=== PATIENT | female | born 1960 | race Caucasian/White ===

== ENCOUNTER 2024-09-14 10:56 | Emergency (ER) | payer MEDICARE, MEDICAID ==
[~2024-09-14] VITALS: Ht 154.9 cm; Wt 72.0 kg
[2024-09-14 10:58] VITALS: BP 115/76; PULSE 64; RESP 16; TEMP 97; O2SAT 97
--- NOTE | 2024-09-14 11:56 | Physician Documentation ---
History of Present Illness ~ Chief Complaint: Abscess Stated Complaint: GROWTH ON NECK Time Seen by MD: 11:02 HPI Patient is seen today with complaints of a mildly tender mass in the left side of her neck that is been slowly growing and developing over the last 2-3 weeks. Patient denies any drainage from the site or redness or warmth. Patient denies any fevers or chills. Patient states she does take thyroid hormone but denies any previous thyroid surgeries. Patient denies any personal history of cancer but states her sister did pass from ovarian cancer. Patient denies any shortness of breath or trouble swallowing or chest pain or abdominal pain or nausea, vomiting, diarrhea. Patient has no other concern or complaint at this time. Medication Reconciliation Allergies: Coded Allergies: No Known Allergies (Unverified , 09/14/24) Review of Systems Constitutional: Denies: chills, fever, weakness Eyes: Denies: pain, blurred vision ENT: Denies: ear pain, nose pain, throat pain, mouth pain Respiratory: Denies: cough, shortness of breath Cardiovascular: Denies: chest pain, palpitations Gastrointestinal: Denies: abdominal pain, nausea, vomiting Genitourinary: Denies: burning, dysuria Female Genitalia: Denies: vaginal discharge, pelvic pain Neurological: Denies: headache, dizziness Musculoskeletal: Denies: pain, swelling Integumentary: Denies: rash, lesions Allergic/Immunologic: Denies: hives, itching Hematologic/Lymphatic: Denies: no symptoms reported Psychiatric: Denies: depression, anxiety Physical Exam Vital Signs: Temperature: 97.0, Heart Rate: 64, Respiratory Rate: 16, BP: 115/76, Pulse Oximetry: 97, Weight: 72.000 Physical Exam General: Awake and Alert, no acute distress. HEENT: Conjunctiva pink, Sclera clear, Mucus Membranes moist. Neck: Patient on exam does have large non fluctuant firm mass that is nonmobile in the left side of her neck around her sternocleidomastoid muscle. In the area of the anterior cervical chain of lymph nodes. Patient has mild tenderness to palpation in this area. I do not appreciate any erythema or warmth or induration or sign of infection. Resp: Unlabored. Lungs clear to auscultation bilaterally. Heart: Regular Rate and rhythm, normal S1 and S2 without murmur, rub or gallop. Abdomen: Soft and non tender no organomegaly Extremities: No cyanosis,clubbing or edema. Skin: Warm and Dry. Progress Results/Orders Results/Orders Orders - JAN RIDER R PAC Ct Neck Soft Tissues (09/14/24 13:09) Ultrasound Head Neck (09/14/24 11:57) Completed Orders - JAN RIDER R PAC CMP (09/14/24 11:51) Ct Neck Soft Tissues (09/14/24 13:09) Cbc/Diff (09/14/24 11:51) TSH (09/14/24 11:51) Free T4 (09/14/24 11:51) Ultrasound Head Neck (09/14/24 11:57) Iohexol 300mg/Ml 100ml Inj. (Omnipaque-3 (09/14/24 12:41) Vital Signs 09/14/24 10:58 Temp 97.0 Pulse 64 Resp 16 B/P (MAP) 115/76 Pulse Ox 97 Laboratory Tests Test 09/14/24 12:01 White Blood Count 6.2 Red Blood Count 3.74 L Hemoglobin 11.4 L Hematocrit 33.6 L Mean Corpuscular Volume 89.9 Mean Corpuscular Hemoglobin 30.5 Mean Corpuscular Hemoglobin Concent 33.9 Red Cell Distribution Width 14.0 Platelet Count 346 Mean Platelet Volume 7.2 L Neutrophils (%) (Auto) 59.2 Lymphocytes (%) (Auto) 26.2 Monocytes (%) (Auto) 10.7 Eosinophils (%) (Auto) 2.5 Basophils (%) (Auto) 1.4 H Neutrophils # (Auto) 3.7 Lymphocytes # (Auto) 1.6 Monocytes # (Auto) 0.7 Eosinophils # (Auto) 0.2 Basophils # (Auto) 0.1 CBC Comment Sodium Level 139 Potassium Level 4.2 Chloride Level 102 Carbon Dioxide Level 29.7 Anion Gap 7 L Blood Urea Nitrogen 8 Creatinine 0.90 Estimated GFR/1.73 m2 63 BUN/Creatinine Ratio 8.9 L Glucose Level 90 Calcium Level 9.2 Total Bilirubin 0.7 Aspartate Amino Transf (AST/SGOT) 17 Alanine Aminotransferase (ALT/SGPT) 14 Alkaline Phosphatase 88 Total Protein 8.1 Albumin 3.4 Globulin 4.7 H Albumin/Globulin Ratio 0.7 L Thyroid Stimulating Hormone (TSH) 1.28 Free Thyroxine 1.03 Chemistry Comments EKG/XRAY/CT/US/VASC/MRI CT : Impression CAT SCAN Patient: MARGOT CASTANON Medical Record: [id number] [facility] 1960, Age: 64 Sex: Female Location: ER Patient Status: [facility] ER Service Date/Time: 09/14/241308 Ordering Physician: JAN RIDER PAC Exam: CT NECK SOFT TISSUES EXAM: CT CT NECK SOFT TISSUES W/ IV CONTRAST INDICATION: mass right side of neck Exam Date: 09/14/2024 01:01 PM COMPARISON: Ultrasound dated the same TECHNIQUE: CT of the neck with intravenous contrast. RADIATION DOSE: CTDIvol: 15.8 mGy, DLP: 519 mGy*cm FINDINGS: Multiple prominent left level 2 B lymph nodes measuring up to 0.6 cm in short axis. Single lymph node versus necrotic mass abuts the posterior aspect of the left sternocleidomastoid muscle measures 1.1 cm. The fat planes of the neck appear intact. The airway and larynx are unremarkable. The parotid, submandibular and thyroid glands are unremarkable. The vascular structures of the neck appear patent. Cardiomegaly. Coronary artery calcifications. Vascular calcifications of the aorta. The visualized lung apices are clear. The limited visualized portions of the brain are unremarkable. The osseous structures are unremarkable. IMPRESSION: Multiple prominent left level 2 B lymph nodes measuring up to 0.6 cm in short axis. Single prominent lymph node versus necrotic mass abuts the posterior aspect of the left sternocleidomastoid muscle measures 1.1 cm. Electronically Signed by:LANCE DIAZ MD Date & Time: 09/14/241342 Dictated by: LANCE DIAZ MD Dictation date and time: 09/14/24 134 Primary Care Provider: NO PRIMARY CARE PROVIDER cc: JAN RIDER PAC ~ Ultrasound : Impression ULTRASOUND Patient: MARGOT CASTANON Medical Record: [id number] [facility] 1960, Age: 64 Sex: Female Location: ER Patient Status: [facility] ER Service Date/Time: 09/14/24/ 115 Ordering Physician: JAN RIDER PAC Exam: ULTRASOUND HEAD NECK Exam: US ULTRASOUND HEAD NECK Clinical History: left side of neck limited, mass Comparison: None Technique: Targeted sonographic evaluation of the soft tissues of the left neck was obtained utilizing grayscale and color Doppler imaging. Findings/Impression: Multiple indeterminate hypoechoic lymph nodes are present in the left neck measuring up to 0.7 cm. Electronically Signed by:LANCE DIAZ MD Date & Time: 09/14/24 123 Dictated by: LANCE DIAZ MD Dictation date and time: 09/14/24 123 Primary Care Provider: NO PRIMARY CARE PROVIDER cc: JAN RIDER PAC ~ Medical Decision Making Findings Patient is seen today with complaints of a mildly tender mass in the left side of her neck that is been slowly growing and developing over the last 2-3 weeks. Patient denies any drainage from the site or redness or warmth. Patient denies any fevers or chills. Patient states she does take thyroid hormone but denies any previous thyroid surgeries. Patient denies any personal history of cancer but states her sister did pass from ovarian cancer. Patient denies any shortness of breath or trouble swallowing or chest pain or abdominal pain or nausea, vomiting, diarrhea. Patient has no other concern or complaint at this time. CT scan and ultrasound of soft tissue of left-sided neck did show Multiple prominent left level 2 B lymph nodes measuring up to 0.6 cm in short axis. Single prominent lymph node versus necrotic mass abuts the posterior aspect of the left sternocleidomastoid muscle measures 1.1 cm. Patient will follow up with ENT specialist as soon as possible and will follow up with primary care as soon as possible for referral to ENT specialist. Patient will return to ED with any worsening, concerning or changing symptoms. Patient voiced understanding. Shared decision-making utilized with the patient today. Departure Impression: Primary Impression: Neck mass Condition: Stable Additional Instructions: CT scan and ultrasound of soft tissue of left-sided neck did show Multiple prominent left level 2 B lymph nodes measuring up to 0.6 cm in short axis. Single prominent lymph node versus necrotic mass abuts the posterior aspect of the left sternocleidomastoid muscle measures 1.1 cm. Patient will follow up with ENT specialist as soon as possible and will follow up with primary care as soon as possible for referral to ENT specialist. Patient will return to ED with any worsening, concerning or changing symptoms. Patient voiced understanding. Shared decision-making utilized with the patient today. Referrals: NO PRIMARY CARE PROVIDER (PCP) Signature Scribe Signature: No scribe Attestation: No scribe JAN RIDER PAC September 14, 2024 11:56
[2024-09-14 12:09] LABS: BASOPHILS # (AUTO) 0.1 X10'3 (0-0.2); BASOPHILS % (AUTO) 1.4 % (0-1); EOSINOPHILS # (AUTO) 0.2 X10'3 (0-0.9); EOSINOPHILS % (AUTO) 2.5 % (0-6); HEMATOCRIT 33.6 % (35.0-45.0); HEMOGLOBIN 11.4 g/dl (12.0-16.0); LYMPHOCYTES # (AUTO) 1.6 X10'3 (1.1-4.8); LYMPHOCYTES % (AUTO) 26.2 % (21-51); MEAN CORPUSCULAR HEMOGLOBIN 30.5 PG (27.0-31.0); MEAN CORPUSCULAR HGB CONC 33.9 g/dL (33.0-36.5); MEAN CORPUSCULAR VOLUME 89.9 FL (78-98); MEAN PLATELET VOLUME 7.2 FL (7.4-10.4); MONOCYTES # (AUTO) 0.7 X10'3 (0-0.9); MONOCYTES % (AUTO) 10.7 % (2-12); NEUTROPHILS # (AUTO) 3.7 X10'3 (1.8-7.7); NEUTROPHILS % (AUTO) 59.2 % (42-75); PLATELET COUNT 346 X10'3 (140-440); RED BLOOD COUNT 3.74 X10'6 (4.20-5.60); WHITE BLOOD COUNT 6.2 X10'3 (4.5-11.0)
[2024-09-14 12:23] LABS: ALANINE AMINOTRANSFERASE 14 U/L (12-78); ALBUMIN 3.4 G/DL (3.4-5.0); ALBUMIN/GLOBULIN RATIO 0.7 (1.1-1.5); ALKALINE PHOSPHATASE 88 IU/L (46-116); ANION GAP 7 (8-16); ASPARTATE AMINO TRANSFERASE 17 U/L (10-37); BILIRUBIN,TOTAL 0.7 MG/DL (0.1-1.0); BLOOD UREA NITROGEN 8 MG/DL (7-18); BUN/CREATININE RATIO 8.9 (10.0-20.0); CALCIUM 9.2 MG/DL (8.5-10.1); CHLORIDE 102 MMOL/L (99-107); GLUCOSE 90 MG/DL (70-104); POTASSIUM 4.2 MMOL/L (3.5-5.1); SODIUM 139 MMOL/L (135-145); TOTAL CARBON DIOXIDE 29.7 MMOL/L (24-32); TOTAL PROTEIN 8.1 G/DL (6.4-8.2); eCRCL 47 ML/MIN; eGFR 63 ML/MIN
[2024-09-14 12:33] LABS: FREE T4 (FREE THYROXINE) 1.03 NG/DL (0.73-1.40); THYROID STIMULATING HORMONE 1.28 ulU/ml (0.34-4.50)
[2024-09-14] MEDS ORDERED: iohexol 300mg/ml 100ml inj. ONE (12:41)
--- NOTE | 2024-09-14 12:41 | RADIOLOGY REPORT ---
Exam: US ULTRASOUND HEAD NECK Clinical History: left side of neck limited, mass Comparison: None Technique: Targeted sonographic evaluation of the soft tissues of the left neck was obtained utilizing grayscal e and color Doppler imaging. Findings/Impression: Multiple indeterminate hypoechoic lymph nodes are present in the left neck measuring up to 0.7 cm.
--- NOTE | 2024-09-14 13:45 | RADIOLOGY REPORT ---
EXAM: CT CT NECK SOFT TISSUES W/ IV CONTRAST INDICATION: mass right side of neck Exam Date: 09/14/2024 01:01 PM COMPARISON: Ultrasound dated the same TECHNIQUE: CT of the neck with intravenous contrast. RADIATION DOSE: CTDIvol: 15.8 mGy, DLP: 519 mGy*cm FINDINGS: Multiple prominent left level 2 B lymph nodes measuring up to 0.6 cm in short axis. Single lymph node versus necrotic mass abuts the posterior aspect of the left sternocleidomastoid muscle measures 1.1 cm. The fat planes of the neck appear intact. The airway and larynx are unremarkable. The parotid, submandibular and thyroid glands are unremarkable. The vascular structures of the neck appear patent. Cardiomegaly. Coronary artery calcifications. Vascular calcifications of the aorta. The visualized l elsie apices are clear. The limited visualized portions of the brain are unremarkable. The osseous st ructures are unremarkable. IMPRESSION: Multiple prominent left level 2 B lymph nodes measuring up to 0.6 cm in short axis. Single prominent lymph node versus necrotic mass abuts the posterior aspect of the left sternocleidomastoid muscle zena sures 1.1 cm.
== END 2024-09-14 14:20 | disposition home or self-care (01) ==
LOC: ER 10:57
DX: R22.1 Localized swelling, mass and lump, neck (principal)
CPT/HCPCS: 36415; 70491; 76882; 80053; 84439; 84443; 85025; 99285; Q9967